=== PATIENT | male | born 1935 | race Caucasian/White ===

== ENCOUNTER 2019-03-19 16:51 | Inpatient (IN) | payer OTHER ==
[~2019-03-19] VITALS: Ht 182.9 cm; Wt 78.0 kg
--- NOTE | ~2019-03-19 | HC ---
[facility] [address] CONSULTATION Name: MARIPOSA CRAWFORD Room #: 460-P ADM IN M.R.#: [id number] Admission: 03/19/19 ������������������ Attend Phys: Cory Bansal MD Discharge: ������������������ Date of : 36 Report #: [id number] THIS REPORT FOR: //name// CC: Cory Thibodeaux DATE OF SERVICE: 03/21/2019 HISTORY OF PRESENT ILLNESS: An 84-year-old male patient who was evaluated by me for altered mental status. The patient provides some history. I got most of the history from the son. The patient used to live by himself. In the middle of last year he moved with his son. I am not certain what kind of memory he had at that time. I am not certain why he moved here. He has been more confused recently. When he came in, he was running low-grade temperature. He is being treated for pneumonia. He has become at least more confused. REVIEW OF SYSTEMS: Indicate that there is a question of atrial fibrillation and the patient's history, he has bilateral knee replacement. He apparently has a history of hypertension. He had some dental infection recently. He had hyponatremia when he came in. This was his relevant 14-point review of system. He himself does not complain of any new eye, ENT, cardiac, respiratory, GI, , musculoskeletal, dermatological, hematological, psychiatric, throat, allergic symptom associated with present symptomatology. He is afebrile now. PAST MEDICAL HISTORY: Negative for any stroke. FAMILY HISTORY: Negative for early age stroke. SOCIAL HISTORY: He drinks one beer every second or third day according to the son. He does not smoke. PHYSICAL EXAMINATION: Indicate he is alert. He is responsive. He can tell me what month it is, but cannot tell me what date it is. He knew who the president was, but did not know what hospital he was in so his memory and fund of knowledge is poor. He has no meningeal sign. Cranial nerve examination is unremarkable. Strength, sensation, reflexes and tone is symmetrical. There is no cerebellar sign. I could not look at the patient's fundus. He is a well-developed individual. His hearing and vision is adequate. He has no thyroid mass. He has no edema, cyanosis or jaundice. Pulses are difficult to feel in the feet. Blood pressure is 135/75, respirations 15, pulse is 58, temperature is 97.3. LABORATORY DATA: His white count is normal at 5.2. He is still hyponatremic, but is better. His calcium is also low. His TSH and vitamin B12 is normal. He had a CT head and CT angiography and that was unremarkable. [address] [address] CONSULTATION Name: MARIPOSA CRAWFORD Room #: 460-P ADM IN M.R.#: [id number] Admission: 03/19/19 ������������������ Attend Phys: Cory Bansal MD Discharge: ������������������ Date of : 36 Report #: [id number] IMPRESSION: This patient's symptoms most likely is the cause of encephalopathy caused by systemic infection. There is no sign for FITTER TYPE BAR AND SEGMENT infection. It is not clear what his baseline mental status. It is also not clear what triggered the acute decompensation in this patient. Hyponatremia could have contributed some to his symptom, but hyponatremia is not severe enough to cause in this much symptom. He has a pretty significant insomnia from last few days and that also may have contributed to his symptoms. RECOMMENDATIONS: 1. I think it will be desirable to do an MRI in this patient whenever he stabilizes. This is especially if he has a prior history of atrial fibrillation and if he can find a stroke that may change the treatment and also may be an indication to look for any more serious problem because of the recent dental infection and pneumonia. Son does not think the patient should be able to do an MRI and we will just wait until he stabilized to get the MRI done. 2. I will get an EEG done. 3. Main management is going to see how he does after his hyponatremia and hypocalcemia is corrected and he is able to sleep somewhat better. Thank you very much for this referral and if you have any question, please feel free to contact me. ��������������������������������������������� ���������������������������������������� By: ��������������������������������������������� [id number] John Ames MD /carla
[2019-03-19 16:52] VITALS: BP 159/70
[2019-03-19 17:18] LABS: HEMATOCRIT 38.3 % (42.0-52.0); HEMOGLOBIN 13.2 gm/dL (14.0-18.0); MCH 32.1 pg (26.0-34.0); MCHC 34.4 g/dL (28.0-37.0); MCV 93.4 fL (80.0-100.0); PLATELET COUNT 181 thou/uL (150-400); RDW 12.6 % (10.5-14.5); WBC 6.9 thou/uL (4.0-11.0)
[2019-03-19] MEDS ORDERED: LOSARTAN-HCTZ1 EAC2 PO (17:27)
[2019-03-19] MEDS ORDERED: TUMS PO (17:27)
[2019-03-19] MEDS ORDERED: SYNTHROID150 MCG PO (17:27)
[2019-03-19] MEDS ORDERED: CELEXA20 MG PO (17:27)
[2019-03-19] MEDS ORDERED: MAGOX 400400 MG PO (17:27)
[2019-03-19] MEDS ORDERED: BYSTOLIC20 MG PO (17:27)
[2019-03-19] MEDS ORDERED: IRON325 PO (17:27)
[2019-03-19] MEDS ORDERED: ASPIR 8181 MG PO (17:28)
[2019-03-19] MEDS ORDERED: AMOXICILLIN 50500 MG PO (17:28)
[2019-03-19 17:29] LABS: URINE BILIRUBIN NEGATIVE (Negative); URINE BLOOD 1+ (Negative); URINE CLARITY CLEAR; URINE COLOR YELLOW; URINE GLUCOSE-RANDOM* NEGATIVE (Negative); URINE KETONES 2+ (Negative); URINE LEUKOCYTES-REFLEX NEGATIVE (Negative); URINE NITRITE-REFLEX NEGATIVE (Negative); URINE PROTEIN (DIPSTICK) NEGATIVE (Negative); URINE SPECIFIC GRAVITY 1.015 (1.005-1.035); URINE UROBILINOGEN 0.2 E.U./dl (0.2-1.0)
[2019-03-19 17:29] LABS: ANION GAP 12 mmol/L (7-16); BUN 18 mg/dL (7-18); CALCIUM 8.4 mg/dL (8.5-10.1); CHLORIDE 94 mmol/L (98-107); CO2 24 mmol/L (21-32); CREATININE 0.9 mg/dL (0.7-1.3); GLUCOSE 105 mg/dL (74-106); POTASSIUM 3.9 mmol/L (3.5-5.1); SODIUM 130 mmol/L (136-145)
[2019-03-19 17:39] LABS: ALBUMIN 3.4 g/dL (3.4-5.0); SGOT 15 U/L (15-37); SGPT 14 U/L (30-65); TOTAL BILIRUBIN 0.6 mg/dL (<0.1-1.0); TOTAL PROTEIN 6.9 g/dL (6.4-8.2); TROPONIN-I <0.06 ng/mL (<0.06)
[2019-03-19 17:42] LABS: BACTERIA-REFLEX 1-9 Few /HPF (None Seen); CASTS None Seen /LPF (None Seen); CRYSTALS None Seen /LPF (None Seen); SQUAMOUS None Seen /LPF (0-3); URINE RBC 0-2 Rare /HPF (0-2)
[2019-03-19 17:43] LABS: URINE WBC-REFLEX None Seen /HPF (0-5)
[2019-03-19 17:49] LABS: ABSOLUTE NEUTROPHILS 5.4 thou/uL (1.4-8.2)
[2019-03-19 21:04] VITALS: BP 137/51
[2019-03-19 21:13] VITALS: BP 128/60
[2019-03-19 21:53] VITALS: BP 132/72
[2019-03-20 04:38] VITALS: BP 121/59
[2019-03-20 05:09] LABS: HEMATOCRIT 37.1 % (42.0-52.0); HEMOGLOBIN 12.7 gm/dL (14.0-18.0); MCHC 34.3 g/dL (28.0-37.0); MCV 93.2 fL (80.0-100.0); RBC 3.97 mil/uL (4.50-6.00); RDW 13.2 % (10.5-14.5); WBC 5.2 thou/uL (4.0-11.0)
[2019-03-20 05:18] LABS: CALCIUM 7.9 mg/dL (8.5-10.1); CREATININE 0.8 mg/dL (0.7-1.3); POTASSIUM 3.9 mmol/L (3.5-5.1)
--- NOTE | 2019-03-20 07:54 | NUR ---
PATIENT AOX1 CONFUSED AND FORGETFUL. PATIENT NEW ADMIT FOR DEHYDRATION, DIZZINESS, ALTERED MENTAL STATUS AND UNABLE TO ABULATE. PATIENT HAD A TEMP OF 100.[address] GOMEZ ORDER OF TYL, NS X2 BAGS, THEN LR, @125. LAB, O2 PROTOCAL, ORHOSTATIC IN THE AM, CHEST X RAY. PATIENT DENIED PAIN OR DISCOMFORT. FAMILY WAS CONCERED OF PATIENT AMS, CALLED AND NOTIFIED. PATIENT NEED MAXIMUM ASSITANCE WITH ADL, BED MOBILITY, TRANSFER AND TOILETING.PATIENT WAS AWAKE MOST OF THE TIME TONIGHT. FALL PRECAUTION IN PLACE. FAMILY AT BED SIDE.PATIENT IN BED ASLEEP AT THIS TIME BREATHING REGULAR AND UNLABOURED.
[2019-03-20 14:05] VITALS: BP 116/62; BP 119/69
[2019-03-20 14:07] VITALS: BP 119/69
--- NOTE | 2019-03-20 15:32 | NUR ---
PT ADMITTED RELATED TO DIZZINESS, UNABLE TO AMBULATE. CM REVIEWED CHART AND SPOKE WITH CARE TEAM. CM MET WITH PT, SON, AND DTR AT BEDSIDE THIS DAY. THEY INDICATED THAT PT LIVES IN A HOUSE WITH HIS SON WITH 4 STEPS TO ENTER AND NO STEPS INSIDE. 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 THEY INDICATED NO HOME HEALTH HISTORY BUT THAT PT HAD GONE TO OP THERAPY IN THE PAST. THEY INDICATED THAT THEY PLAN ON PT RETURNING HOME ONCE MEDICALLY STABLE. CM TO FOLLOW INDICATED WITH DC PLANNING.
--- NOTE | 2019-03-20 17:03 | EKG ---
[address] [place] [address] ELECTROCARDIOGRAM REPORT Name: MARIPOSA CRAWFORD Room #: 460-P ADM IN M.R.#: [id number] ������������������ Admission: 03/19/19 ������������������ Attend Phys: Cory Bansal MD Discharge: ������������������ Date of : 36 Report #: [id number] ����������������������������������������������������������������� [id number] THIS REPORT FOR: //name// [facility] ED Test Date: 2019-03-19 Test Time: 16:57:34 Pat Name: MARIPOSA CRAWFORD Department: Room: [facility] Gender: M Transportation Department Head: JAYJAY : 1935 Requested By: Ezequiel Gallo Order Number: [id number] MD: Genaro Rodriguez Measurements Intervals [place] Rate: 87 P: 3 [place]: 171 QRS: 49 QRSD: 105 T: 5 QT: 342 QTc: 412 Interpretive Statements Sinus rhythm Ventricular premature complex No previous ECG available for comparison Electronically Signed On 03-20-2019 17:02:56 CDT by eGnaro Rodriguez [email or web address] ��������������������������������������������� <ELECTRONICALLY SIGNED> ���������������������������������������� By: Genaro Rodriguez MD, [facility] ��������������������������������������������� 03/20/19 1702 1657 [id number] Genaro Rodriguez MD, FACC /EPI
--- NOTE | 2019-03-20 19:35 | NUR ---
Received awake on bed. With IV at Right forearm, normal saline at 125cc/hr infusing well-patient to have 2 bags of normal saline (bag 1 out of 2 infusing as handed over by night staff then to have lactated ringer as prescribed. Patient alert and oriented x 1, confused. Able to use urinal to pass urine, assisted to get out from bed. With son at the bedside. Patient hard of hearing, able to hear from right ear. breathing on room air. Patient's son complained that they haven't seen a doctor since they came in from the ER and asking what time Dr. Bansal will have his rounds, told him that we cannot give exact time for doctor's rounds. Called up Dr. Bansal' office and his staff mentioned that he might be on his way. Patient's son also asked about his father's maintenance medications not yet started as well as an MRI to be done today- mentioned to son that there was not MRI ordered, to clarify with Dr. Bansal when he has his rounds later. Dr. Bansal' talked to patient that no MRI is ordered and to be done to pt. Patient's son complained of his dad having pink eye- Dr Bansal did not prescribe any eye drops/medications for it. Maintenance medications restarted after patient had lunch. Patient encouraged to eat and drink- able to finish meals. Dr. Bansal ordered for MRSA- swab done and sent to lab, Urine specimen collected and sent to lab. Patient ordered with Vancomycin IV- given as prescribed. Patient's temperature monitored frequently. Patient for blood tests tomorrow (03/21)- Basic metabolic panel, Mg- patient's relative informed. IV changed, ongoing 2nd bag of normal saline- handed over to night staff that patient will have lactated ringers after the normal saline as prescribed. Relative stayed at bedside the whole afternoon. Patient started getting out of bed and trying to ambulate this evening, he pulled his IV out as well. Handed over to night staff that patient might need sitter.
[2019-03-20 20:30] VITALS: BP 139/59
[2019-03-21 03:18] VITALS: BP 127/61
--- NOTE | 2019-03-21 05:30 | NUR ---
Pt. has been up all night with periods of restlessness. He is very confused and oriented to self. Dgt. at the bedside all night and he is able to identify her. He has been up and down out of the bed continuosly during the night. Bed alarm has been on. Pt. easily redirectable. This am he became more aggressive according to the daughter. Upon assessment pt. more agitated and not so easy to redirct. Dr. Bansal called and new orders given (see cpoe and emar).
[2019-03-21 06:00] LABS: CALCIUM 7.5 mg/dL (8.5-10.1); CREATININE 0.7 mg/dL (0.7-1.3); MAGNESIUM 1.9 mg/dL (1.8-2.4); POTASSIUM 3.3 mmol/L (3.5-5.1)
[2019-03-21 07:40] VITALS: BP 121/60
--- NOTE | 2019-03-21 09:46 | NUR ---
ASSUMED PATIENT CARE AT 0715. THIS NURSE HAS BEEN IN PATIENT ROOM THE MAJORITY OF THE MORNING. PATIENT IS CONSTANTLY GETTING UP OUT OF THE CHAIR OR BED. FAMILY AT BEDSIDE. PATIENT NEEDING REORIENTED FREQUENTLY. SEROQUEL GIVEN THIS AM IN HOPES OF HELPING PATIENT SLEEP. PATIENT HAS NOT SLEPT SINCE TUESDAY. SEROQUEL WAS INEFFECTIVE. DR. DAVIS ORDERED A ONE TIME DOSE OF PO ATIVAN. ATIVAN GIVEN. PATIENT RECLINED IN THE CHAIR. FAMILY AT BEDSIDE. CURRENT GOAL IS FOR PATIENT TO GET SOME SLEEP TODAY. THIS NURSE NOTIFIED INSIDE CHANNEL ACCOUNT MANAGER OF POSSIBLE NEED FOR SITTER DUE TO PATIENT BEING IMPULSIVE. INSIDE CHANNEL ACCOUNT MANAGER STATED "TRY AND GIVE THE PATIENT SOME MEDS TO RELAX THEM AND HELP THEM SLEEP FIRST". PROVIDER AT BEDSIDE.
[2019-03-21 10:12] LABS: BE(vivo) -1.1 mmol/L (-2 to +3); PCO2 32.3 mmHg (35.0-45.0); PO2 70.2 mmHg (80.0-100.0); pH 7.452 (7.360-7.450)
[2019-03-21 11:17] LABS: FOLIC ACID 22.3 ng/mL (8.6-58.9); TSH 0.584 uIU/mL (0.358-3.740)
[2019-03-21 14:14] VITALS: BP 135/75
--- NOTE | 2019-03-21 14:55 | NUR ---
FAMILY INDICATED THAT THEY ANTICIPATE PT RETURNING HOME ONCE MEDICALLY STABLE. AWAITING THERAPY EVALS TO DETERMINE PLAN OF CARE. CM TO FOLLOW INDICATED WITH DC PLANNING.
[2019-03-21 19:03] VITALS: BP 154/61
--- NOTE | 2019-03-22 00:31 | H ---
[facility] [place] [address] HISTORY AND PHYSICAL Name: MARIPOSA CRAWFORD Room #: 460-P ADM IN M.R.#: [id number] Admission: 03/19/19 ������������������ Attend Phys: Cory Bansal MD Discharge: ������������������ Date of : 36 Report #: [id number] THIS REPORT FOR: //name// CC: Cory Thibodeaux MD DATE OF SERVICE: 03/19/2019 CHIEF COMPLAINT: Altered mental status. HISTORY OF PRESENT ILLNESS: The patient is an 84-year-old white male who in the last couple of months moved up to return to ____ to live with his son. His son was present at the time of the visit. The patient apparently had not been feeling well for the last 3 days prior to admission. On the day of admission, the patient was found down at home and he told his son that he had bent over to bead picker something, but could not get up again. The son could not turn him after getting him up, because the patient was unable to arise from seated position in bed or chair and as he was not comfortable trying to get him up from the floor, son called for paramedics, who took him to [facility] Room for further evaluation and treatment. The patient is deemed a poor historian. So, this H and P and most of the information obtained was confirmed with his son who was present during the examination. PAST MEDICAL HISTORY: Includes episode of atrial fibrillation in the past, bilateral knee replacements and seasonal allergies. I did ask why the patient was moved up to [place] and his son simply mentioned to me that it was time. ALLERGIES: The patient has no known drug allergies. MEDICATIONS: His home medications list includes Bystolic, losartan and hydrochlorothiazide, citalopram, levothyroxine for hypothyroidism, magnesium oxide, calcium carbonate, ferrous sulfate, aspirin, and he was recently started on a course of amoxicillin for dental infection. SOCIAL HISTORY: The patient is originally from ____ [place], [place]. I believe he is , has a son and a daughter and possibly others. He is a nonsmoker and does not abuse alcohol or recreational drugs. FAMILY HISTORY: Could not be obtained. REVIEW OF SYSTEMS: Scattered funny areas of pain on his scalp in the last few days, which concerned his son. The son also noticed the patient had increasing confusion on the day of admission. Denies having any problems with coughing or shortness of breath, but the patient's appetite has definitely not been as good as usually it was. There is no other history of falls recently or in the recent [facility] [address] [place] [address] HISTORY AND PHYSICAL Name: MARIPOSA CRAWFORD Room #: 460-P [facility] IN M.R.#: [id number] Admission: 03/19/19 ������������������ Attend Phys: Cory Bansal MD Discharge: ������������������ Date of : 36 Report #: [id number]. PHYSICAL EXAMINATION: VITAL SIGNS: In the Emergency Room showed a temperature of 38.4 degrees centigrade, approximately 101 degrees; pulse was 75; respirations 16; blood pressure 159/70 and pulse oximetry on 4 liters per nasal cannula is 91%. There is a self-reported weight as 172 pounds. GENERAL: The patient is a pleasant elderly white male that is seen after in light of intravenous fluids. HEENT: The extraocular muscles are intact. There is a slight ascend of left eye and conjunctival erythema, without mattering. The right eye looks benign. Oropharynx is dry and pink. The eyes appear somewhat sunken. Sinuses are nontender. The hearing is markedly diminished on the left side. The extraocular muscles are intact. The oropharynx is dry and pink, without lesions or exudates. NECK: Without adenopathy, thyromegaly, mass or significant bruit. LUNGS: Fairly clear in the upper lung m[place] bilaterally, but the bases are particularly diminished, especially on the left. ABDOMEN: Soft. Bowel sounds are present. No visceromegaly or masses. EXTREMITIES: Without cyanosis, clubbing or peripheral edema to any degree. MENTAL STATUS EXAMINATION: The patient is alert. He is oriented to person, but not place nor time. He did recognize his son. He does know that his doctor is Dr. Thibodeaux. No focal deficits of sensation, motor function, deep tendon reflexes or cranial cerebellar examination. A mini mental status exam was not otherwise pursued today. ASSESSMENT AND PLAN: 1. Left lower lung pneumonia, community acquired - portable chest x-ray showed clear loss of diaphragmatic marking on the left side. Because there is a ____, it is difficult to see a specific infiltrate otherwise. The rest of the exam is benign. The patient has been started on intravenous antibiotics and nebulizer treatments and will be monitored closely. He is on an oxygen protocol and he is getting supplemental breathing treatments. 2. Dehydration secondary to pneumonia - continue IV fluids. 3. Delirium - I had a lengthy talk with the patient and his son today. I did relay that his mentation will keep improving with IV fluids and treatment of the underlying cause, the infection. I did not order an MRI scan ____, though and the son was given the impression in the Emergency Room that that was the case. He had been waiting to find out what the MRI scan showed and I informed him I did not have any impression of getting one right at this time. I still may need one during this hospital stay and I let him know that I would be in touch with him if and when we decided to pursue that. [facility] [address] [place] [address] HISTORY AND PHYSICAL Name: MARIPOSA CRAWFORD Room #: 460-P ADM IN M.R.#: [id number] Admission: 03/19/19 ������������������ Attend Phys: Cory Bansal MD Discharge: ������������������ Date of : 36 Report #: [id number] 4. History of gout. 5. History of hypothyroidism, on medication. ��������������������������������������������� <ELECTRONICALLY SIGNED> ���������������������������������������� By: Cory Bansal MD ��������������������������������������������� 03/22/19 0031 [id number] Cory Bansal MD /nt
[2019-03-22 03:53] VITALS: BP 145/62
--- NOTE | 2019-03-22 04:54 | NUR ---
Pt. has been cooperative during the shift. A few times pt. would get im- pulsive and needed some redirection. He was given his seroquel and he has rested quietly most of the shift. Bed alarm is on. Pt. does have a sitter at the bedisde.
[2019-03-22 08:03] VITALS: BP 125/75
[2019-03-22 08:15] VITALS: BP 132/51
--- NOTE | 2019-03-22 15:45 | NUR ---
CARE TEAM INDICATED PT IS PROGRESSING TOWARD GOAL OF DISCHARGE HOME. OT INDICATED THAT WOULD LIKELY BE SAFE TO DISHCARGE HOME WITH HOME HEALTH. PHYSICAIN INDICATED PT COULD BE READY TO DC SOON TOMORROW. CM TO FOLLOW INDICATED WITH DC PLANNING.
[2019-03-22 16:26] VITALS: BP 142/58
--- NOTE | 2019-03-23 02:51 | NUR ---
ASSUMED CARE AROUND 1900. AXOX3. NO IMPULSIVE BEHAVIOR TO GET OUT THE BED NOTED AT THIS TIME. CALLED APPROPRIATELY TO COLTON THE RESTROOM. ACTIVE IV HYDRATION. NO S/S ACUTE DISTRESS NOTED OR REPORTED AT THIS TIME. WILL CONT TO MONITOR FOR ANY CHANGES IN CONDITION.
[2019-03-23 03:40] VITALS: BP 137/56
[2019-03-23 05:28] LABS: CALCIUM 7.6 mg/dL (8.5-10.1); CREATININE 0.5 mg/dL (0.7-1.3); MAGNESIUM 1.9 mg/dL (1.8-2.4); POTASSIUM 3.6 mmol/L (3.5-5.1)
[2019-03-23 07:39] VITALS: BP 137/68
[2019-03-23] MEDS ORDERED: K-DUR 20 MEQ T20 MEQ PO (12:01)
[2019-03-23] MEDS ORDERED: ARTIFICIAL TEA1 EACH OPHTHALMIC (12:02)
--- NOTE | 2019-03-23 12:58 | NUR ---
TOWARDS POC PT A/O X4, VSS, AFEBRILE, DENIES PAIN. NO CONCERNS VOICED. ANTIPATING DC TODAY. WILL CONTINUE TO MONITOR.
[2019-03-23 13:57] VITALS: BP 137/68
--- NOTE | 2019-03-23 14:27 | NUR ---
PHYSICAIN INDICATED THAT PENDING RESULTS OF MRI TODAY PT MAY BE MEDICALLY STABLE TO DC HOME WITH SON AND NO OTHER NEEDS THIS DAY. NO OTHER CM INTERVENTION INDICATED AT THIS TIME. CASE CLOSED.
== END 2019-03-23 15:31 | disposition home or self-care (01) | DRG 193 ==
LOC: ER 16:51 → EROBS 20:17 → 4W 20:17 → ENTRNSPT 03-23 15:02 → EDTRNSPTSTS 03-23 15:05 → 4W 03-23 15:31
PROVIDERS: Physician Assistant; ADMIT Internal Medicine
DX: J18.9 Pneumonia, unspecified organism (principal); G93.41 Metabolic encephalopathy; E86.0 Dehydration; I48.91 Unspecified atrial fibrillation; Z96.653 Presence of artificial knee joint, bilateral; J32.9 Chronic sinusitis, unspecified; R41.0 Disorientation, unspecified; E03.9 Hypothyroidism, unspecified; M10.9 Gout, unspecified; Z79.82 Long term (current) use of aspirin; Z79.899 Other long term (current) drug therapy
CPT/HCPCS: 10045

== ENCOUNTER → 2019-04-13 | Outpatient (CLI) | payer OTHER ==
[~2019-04-13] MED LIST: AMOXICILLIN 50500 MG PO; ARTIFICIAL TEA1 EACH OPHTHALMIC; ASPIR 8181 MG PO; BYSTOLIC20 MG PO; CELEXA20 MG PO; IRON325 PO; K-DUR 20 MEQ T20 MEQ PO; LOSARTAN-HCTZ1 EAC2 PO; MAGOX 400400 MG PO; SYNTHROID150 MCG PO; TUMS PO
== END ==
LOC: RAD 09:23
DX: K44.9 Diaphragmatic hernia without obstruction or gangrene (principal); R91.8 Other nonspecific abnormal finding of lung field

== ENCOUNTER → 2019-11-13 | Outpatient (CLI) | payer OTHER | LOC: MRI 06:28 | DX: G31.9 Degenerative disease of nervous system, unspecified (principal); J34.89 Other specified disorders of nose and nasal sinuses; R90.82 White matter disease, unspecified ==

== ENCOUNTER → 2020-10-02 | Outpatient (CLI) | payer OTHER ==
[2020-10-02 12:20] LABS: CREATININE 0.7 mg/dL (0.7-1.3)
== END ==
LOC: LAB 11:35
DX: I67.89 Other cerebrovascular disease (principal); G43.119 Migraine with aura, intractable, without status migrainosus; H53.433 Sector or arcuate defects, bilateral